=== PATIENT | female | born 1980 | race Caucasian/White ===

== ENCOUNTER 2020-09-27 08:29 | Outpatient (CLI) | payer OTHER, SELFPAY ==
--- NOTE | 2020-09-27 | ECHO_ITS ---
Patient Info Name: Omero Rogel Age: 39 years : 1980 Gender: Female Ht: 61 in Wt: 251 lbs BSA: 2.29 m2 HR: 68 bpm BP: 121 / 86 mmHg Heart Rhythm: Sinus Rhythm Technical Quality: Fair Exam Date: 09/27/2020 9:05 AM Exam Location: [facility]monary Patient Status: Outpatient Admit Date: 09/27/2020 Staff Ordering Physician: PHYSICIAN NOT ON STAFF, NONSTAFF [employer] Contract Representative: Oralia Nagel RDCS Attending Provider: PHYSICIAN NOT ON STAFF, NONSTAFF Exam Type: CA echo doppler color flow Study Info Indications - pulm htn copd Complete two-dimensional, color flow and Doppler transthoracic echocardiogram is performed. Summary 1. Complete two-dimensional, color flow and Doppler transthoracic echocardiogram is performed. 2. Left ventricular chamber dimension is normal. 3. Left ventricular systolic function is normal, estimated at 65-70%. 4. There is mildly increased left ventricular wall thickness. 5. The left ventricular diastolic function is normal. 6. There is mild mitral valve regurgitation. 7. There is mild tricuspid valve regurgitation. 8. No pulmonary hypertension, estimated pulmonary arterial systolic pressure is 32 mmHg. Left Ventricle Left ventricular chamber dimension is normal. Left ventricular systolic function is normal, estimated at 65-70%. There is mildly increased left ventricular wall thickness. The left ventricular diastolic function is normal. Right Ventricle Right ventricular chamber dimension is normal. Right ventricular systolic function is normal. Left Atria Left atrial chamber dimension is normal. Right Atria Right atrial chamber dimension is normal. Atrial Septum Intact interatrial septum visualized by color flow imaging. Aortic Valve The aortic valve is not well visualized. There is mild aortic valve sclerosis. There is no aortic valve stenosis. There is trace aortic valve regurgitation. Pulmonic Valve The pulmonic valve is normal. There is no pulmonic valve stenosis. There is trace pulmonic regurgitation. Mitral Valve The mitral valve has normal leaflets. There is no mitral valve stenosis. There is mild mitral valve regurgitation. Tricuspid Valve The tricuspid valve leaflets are normal. There is no significant tricuspid valve stenosis. There is mild tricuspid valve regurgitation. No pulmonary hypertension, estimated pulmonary arterial systolic pressure is 32 mmHg. Pericardium/Pleural The pericardium appears normal. There is no pericardial effusion. Inferior Vena Cava Normal inferior vena cava with <50% collapse upon inspiration consistent with elevated right atrial pressure, 10 mmHg. Aorta The aortic root size at the sinus of Valsalva is normal. Left Ventricular Outflow Tract Name Value Normal LVOT 2D LVOT Diameter 2.0 cm LVOT Doppler LVOT Peak Gradient 4 mmHg LVOT Mean Gradient 3 mmHg LVOT VTI 20 cm LVOT VTI/AV VTI Ratio 0.7 LVOT Stroke Volume 59 ml LVOT
== END 2020-09-27 08:30 | disposition home or self-care (01) ==
LOC: ANHCARD 08:35
PROVIDERS: PCP Internal Medicine
DX: I27.20 Pulmonary hypertension, unspecified (principal); I34.0 Nonrheumatic mitral (valve) insufficiency; I07.1 Rheumatic tricuspid insufficiency
CPT/HCPCS: 93306

== ENCOUNTER → 2020-11-02 08:20 | Outpatient (CLI) | payer OTHER, SELFPAY ==
--- NOTE | 2020-12-12 15:15 | WPDHOMESLEEP ---
Sleep Study - Home Unattended Date of Study: 11/02/20 Ordering Provider: Rl Lundy MD; primary care doctor is Karson Lauren MD Interpreting Physician: Lashonda Copeland MD Home Sleep Study Type: Apnea Link Air Height: 1.55 m Weight: 117.48 kg Body Mass Index: 48.9 [place]: 12 Reason for Sleep Study Poor quality sleep, wakes up during the night, excessive daytime sleepiness Sleep History Omero Rogel is a 39 year old female with multiple complex medical comorbidities. She has pulmonary hypertension. She says that she is up and down throughout the night. She only gets a few hours of quality sleep. Even when going to bed at 8 or 9:00 p.m. she is always tired and falls asleep the next day. Part of her difficulty is due to pain. She has vivid dreams, sees shadows of things during the night. Lights on her donovan in her room will keep her awake. She is also awakened by noises and yelling. She does not indicate if these are noises from people in her home or if these are due to underlying psychiatric issues. She has bipolar disorder. She has problems falling asleep, she wakes throughout the night, and she has problems waking in the morning to get her son off to school. She has a difficult time waking in the morning. She always has excessive daytime sleepiness. There is a family history with her son and an aunt having a sleep disorder. She is on multiple medications. She has been told by others that she snores loudly. She frequently awakens at night with heartburn, belching or coughing. She rarely awakens from sleep feeling short of breath. She occasionally has trouble sleeping with a cold. She rarely wakes up gasping for breath during the night. She occasionally has breathing problems at night observed by others. She frequently sweats excessively at night. She occasionally notices her heart pounding or beating irregularly at night. She occasionally falls asleep during the day, rarely involuntarily, never while driving and never during physical effort. She frequently has loss of muscle tone with strong emotion, frequently has daytime difficulties due to excessive sleepiness and frequently has vivid dreamlike scenes upon awakening or falling asleep. She occasionally is afraid to go to sleep. She occasionally has nightmares. She frequently remembers her dreams. She frequently has racing thoughts. She occasionally feels sad and depressed. She frequently has anxiety. She occasionally has muscular tension. She occasionally notices parts of her body jerking and she occasionally kicks at night. She frequently has crawling and aching feelings in her legs. She frequently has leg pain during the night. She occasionally has morning jaw pain. She frequently grinds her teeth during sleep. She frequently is bothered by pain during the day, is awakened by pain during the night, frequently wakes up feeling stiff in the morning with sore achy muscles and pain in her neck and spine. She does not currently work. She has multiple additional issues including suicidal ideation at times, sexual problems, memory problems, concentration difficulties, headaches, palpitations, depression and takes antacids regularly. She has lack of sexual desire. Her normal bedtime is 10:00 p.m., taking 15 minutes or up to a few hours to fall asleep. During the night she typically wakes up 4-8 times. While she is awake at night, she will get something to drink, go urinate, smoke a cigarette and maybe have a snack. She tries to return to sleep. She wakes in the morning at 7:30 a.m.. She estimates 6-8 hours of sleep during the night. Her weekend schedule is different, going to bed whenever she falls asleep and waking up whenever she wakes without an alarm. She sometimes takes naps. A short nap is not refreshing. She is usually drowsy in the morning for 2 hours or longer. She feels better in the afternoon and evening compared to the morning.. Habits: Tobacco half pack per day. Anita
[2020-12-12 16:06] VITALS: BMI 48.9
== END ==
PROVIDERS: PCP Internal Medicine
DX: G47.34 Idiopathic sleep related nonobstructive alveolar hypoventilation (principal); G47.10 Hypersomnia, unspecified
CPT/HCPCS: 95806

== ENCOUNTER 2021-10-04 18:13 | Emergency (ER) | payer OTHER, SELFPAY ==
--- NOTE | 2021-10-04 18:25 | ED.DENTAL ---
HPI - Dental/Oral General Chief complaint: Dental/Oral Stated complaint: swollen left side of face/tooth pain Time Seen by Provider: 10/04/21 18:26 Source: patient and RN notes reviewed Mode of arrival: ambulatory Limitations: no limitations History of Present Illness HPI Narrative: 40-year-old female presents with concern for left frontal dental pain, swelling. Reports she has problems with her teeth and sees a dentist, she has an appointment scheduled next week for a root canal, however she has pain and swelling and she is worried about infection. She reports tooth #11 is broken, painful and there is pain above the tooth in the face. Reports she has been taking naproxen and Arianna JOHNSON Complaint: tooth pain Related Data Home Medications Medication Instructions Recorded Confirmed adalimumab [Humira(CF) Pen] mg SUBCUT 10/04/21 albuterol sulfate 10/04/21 clonazepam 10/04/21 dicyclomine mg 10/04/21 drospirenone (contraceptive) 10/04/21 [Slynd] gabapentin 10/04/21 hydrochlorothiazide 10/04/21 lamotrigine 10/04/21 levothyroxine 10/04/21 10/04/21 naproxen 10/04/21 nystatin TOPICAL 10/04/21 ondansetron 10/04/21 oxybutynin chloride 10/04/21 quetiapine 10/04/21 Allergies Allergy/AdvReac Type Severity Reaction Status Date / Time adhesive tape Allergy Rash Verified 10/04/21 18:38 azithromycin Allergy Rash Verified 10/04/21 18:38 clindamycin Allergy Rash Verified 10/04/21 18:38 ibuprofen Allergy Other Verified 10/04/21 18:38 iodine AdvReac Other Verified 10/04/21 18:38 Review of Systems Review of Systems: CONSTITUTIONAL: Denies malaise, chills, sweats, or fever. EYES: Denies visual changes, redness, or discharge. ENT: Reports left frontal dental pain and facial swelling MUSCULOSKELETAL: Denies myalgia. NEUROLOGIC: Denies numbness, weakness, or headache. All systems reviewed & are unremarkable except as noted in HPI and below PMFSH Past Medical History Medical History (Updated 10/04/21 @ 18:37 by Lesly Loredo NP) Asthma-COPD overlap syndrome Bipolar disorder Chronic back pain Gastroesophageal reflux disease Hyperlipidemia Hypothyroidism Obesity Panic disorder Pulmonary hypertension Surgical History Surgical History (Updated 12/12/20 @ 15:41 by Lashonda Copeland MD) History of cholecystectomy History of hernia repair Family History Family History (Updated 12/12/20 @ 15:44 by Lashonda Copeland MD) Mother Thyroid disease Depression Asthma Migraine Malignant tumor of ovary Father Alcohol abuse Migraine Depression Asthma Social History Social History (Updated 12/12/20 @ 15:44 by Lashonda Copeland MD) Social History: lives with her son and her boyfriend Smoking packs per day: 0.5 Smoking cigarettes per day: 10.0 Years smoked: 25 Smoking pack-years: 12.50 Smoking status: Current every day smoker Alcohol intake: current Substance use type: marijuana Comments At time of signature, agree with nursing past medical, surgical, social and family history. There is no relevant family history pertinent to the presenting complaint Exam Narrative: GENERAL: Well-appearing, well-nourished, and in no acute distress. HEAD: Normocephalic, atraumatic. EYES: PERRLA, sclera clear ENT: Nares clear. Mucous membranes moist. Oropharynx without erythema or lesions. Tooth #11 broken, caries with mild left cheek swelling noted NECK: Supple. CHEST: No respiratory distress. Speaks in full sentences. HEART: Regular rate and rhythm. SKIN: Warm, dry, no visible rash. NEURO: Alert and oriented x3. PSYCH: Normal mood and affect Course Course Emergency Course: Patient is aware of diagnosis, understands and agrees to treatment plan. Anticipatory guidance given. Patient agrees to follow-up as directed and is aware of reasons to seek care at the emergency department. Portions of this record may have been created with voice recognition software Vital Signs Vital s
[2021-10-04 18:29] VITALS: BP 143/84; PULSE 66; RESP 16; TEMP 36.8; O2SAT 97
== END 2021-10-04 18:45 | disposition home or self-care (01) ==
PROVIDERS: Emergency Provider Nurse Practitioner
DX: K04.7 Periapical abscess without sinus (principal); F17.210 Nicotine dependence, cigarettes, uncomplicated; F12.90 Cannabis use, unspecified, uncomplicated; J44.1 Chronic obstructive pulmonary disease with (acute) exacerbation; K21.9 Gastro-esophageal reflux disease without esophagitis; E03.9 Hypothyroidism, unspecified; E78.5 Hyperlipidemia, unspecified; E66.9 Obesity, unspecified; Z68.42 Body mass index [BMI] 45.0-49.9, adult; I27.20 Pulmonary hypertension, unspecified
CPT/HCPCS: 99213; G0463